=== PATIENT | female | born 1965 | race Caucasian/White ===

== ENCOUNTER 2016-09-04 10:12 | Outpatient (CLI) | payer OTHER | END 2016-09-04 10:13 | disposition home or self-care (01) | DX: Z13.820 Encounter for screening for osteoporosis (principal); M85.88 Other specified disorders of bone density and structure, other site; Z78.0 Asymptomatic menopausal state ==

== ENCOUNTER 2019-11-15 16:30 | Outpatient (CLI) | payer OTHER | END 2019-11-15 23:59 | disposition home or self-care (01) | LOC: COV 16:30 | PROVIDERS: ATTEND Family Medicine | DX: R53.83 Other fatigue (principal); R19.7 Diarrhea, unspecified; Z20.828 Contact with and (suspected) exposure to other viral communicable diseases | CPT/HCPCS: 81599 ==

== ENCOUNTER 2020-05-11 16:12 | Outpatient (CLI) | payer OTHER | END 2020-05-11 16:13 | disposition home or self-care (01) | LOC: COV 16:12 | PROVIDERS: ATTEND Family Medicine | DX: Z20.828 Contact with and (suspected) exposure to other viral communicable diseases (principal) ==

== ENCOUNTER 2020-05-14 06:39 | Outpatient (CLI) | payer OTHER ==
--- NOTE | 2020-05-14 12:35 | MRI Report ---
PROCEDURE: Knee RT W/O INDICATIONS: RT KNEE PAIN TECHNIQUE: Noncontrast sagittal PD fast spin echo and T2 fast spin echo with fat saturation, sagittal 3-D gradie nt sequence with fat saturation; coronal T1 spin echo and PD fast spin echo with fat saturation, and axial PD fast spin echo with fat saturation through the knee. COMPARISON: Concurrent x-ray of the right knee. FINDINGS: Image quality: Diagnostic. Menisci: There is mild degenerative signal along the free edge in the body of the lateral meniscus jang ggestive of mild degenerative tearing. The medial meniscus appears intact. The meniscal root ligament s also appear intact. Cruciate ligaments: The anterior and posterior cruciate ligaments appear intact. Medial structures: The medial collateral ligament appears intact. The semimembranosus tendon insert ions appear intact. Visualized portions of the pes anserinus tendons appear normal. No abnormal bur mikael fluid. Lateral structures: The fibular collateral ligament and biceps femoris tendon appear intact. The po pliteal tendon and the meniscofemoral ligaments appear intact. Anterior structures: The quadriceps and patellar tendons appear intact. There is mild tendinopathy i n the proximal patella tendon. Patellar alignment is normal. No femoral trochlear dysplasia or vent ral trochlear prominence. There is mild edema within the superolateral aspect of Hoffa's fat pad. Bones and cartilage: No bone marrow contusions or fractures. There is minimal osteophytosis. Mild t o moderate cartilage thinning is demonstrated within the patellofemoral compartment with chondral fis suring. There is associated subchondral edema along the median ridge of the patella. Mild cartilage t hinning is also demonstrated in the medial and lateral compartments with superficial chondral fraying . Joint space: There is a minimal joint effusion. There is a small Spears?s cyst. Normal appearing syn ovial plicae are incidentally noted. IMPRESSION: 1. 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 2. Degenerative signal along the free edge of the body of the lateral meniscus suggestive of mild deg enerative tearing. 3. Mild edema within the superolateral aspect of Hoffa's fat pad suggestive of impingement and possib le Hoffa's syndrome in the appropriate clinical context. 4. Mild tendinopathy in the proximal patella tendon. 5. Small Spears's cyst. Reviewed by: Dave Valenzuela MD on 05/14/2020 12:33 PM PST Approved by: Dave Valenzuela MD on 05/14/2020 12:33 PM PST Station ID: [id number]
--- NOTE | 2020-05-14 13:43 | XRAY Report ---
PROCEDURE: Knee 3 View RT INDICATIONS: RIGHT KNEE PAIN TECHNIQUE: 3 views of the right knee(s) were acquired. COMPARISON: None. FINDINGS: Bones: No fractures or dislocations. No suspicious bony lesions. Soft tissues: No joint effusion. No suspicious soft tissue calcifications. IMPRESSION: No trauma found, no joint effusion or intra-articular loose body. Reviewed by: Shiv Amato MD on 05/14/2020 1:41 PM PST Approved by: Shiv Amato MD on 05/14/2020 1:41 PM [facility] Station ID: [id number]
== END 2020-05-14 06:40 | disposition home or self-care (01) ==
LOC: DI 06:39
PROVIDERS: ATTEND Nurse Practitioner Family
DX: M22.41 Chondromalacia patellae, right knee (principal); R93.6 Abnormal findings on diagnostic imaging of limbs; R60.0 Localized edema; M67.961 Unspecified disorder of synovium and tendon, right lower leg; M71.21 Synovial cyst of popliteal space [Baker], right knee

== ENCOUNTER 2020-07-02 16:01 | Outpatient (CLI) | payer OTHER ==
[2020-07-02] MEDS ORDERED: IOVERSOL 320 100 ML VIAL IVP ONE ×2 (16:15→17:20)
[2020-07-02] MEDS ORDERED: IOVERSOL 320 50 ML VIAL ONE (16:15)
[2020-07-02] MEDS ORDERED: IOVERSOL 320 50 ML VIAL PO ONE (17:20)
--- NOTE | 2020-07-02 17:43 | CT Report ---
PROCEDURE: Abdomen/Pelvis W INDICATIONS: INTRA-ABD/PELVIC SWELLING, MASS AND LUMP CONTRAST: IV CONTRAST: Optiray 320 ml: 100 PO CONTRAST: Optiray 320 ml50 TECHNIQUE: After the administration of contrast, 5 mm thick sections acquired from the diaphragms to the sym physis. 5 mm thick coronal and sagittal reformats were acquired. For radiation dose reduction, the following was used: automated exposure control, adjustment of mA and/or kV according to patient size . COMPARISON: None. FINDINGS: Image quality: Excellent. ABDOMEN: Lung bases: Lung bases are clear. Heart size is normal. Solid organs: Liver and spleen are normal in size and enhancement. Gallbladder is contracted Bilia ry system is non dilated. Pancreas enhances normally. No adrenal nodules. Kidneys demonstrate norm al size and enhancement, without hydronephrosis. Peritoneum and bowel: Bowel loops demonstrate normal wall thickness and caliber. No free fluid or a ir. There is generalized colonic obstipation Nodes and vessels: No retroperitoneal or mesenteric adenopathy by size criteria. Aorta and inferior vena cava are normal in size. Miscellaneous: No ventral hernias. PELVIS: Genitourinary: Bladder wall thickness is normal. Miscellaneous: No inguinal hernias or adenopathy. Several small bowel loops within the lower pelvis are mildly prominent in caliber, measuring up to 2.7 cm in diameter, and associated with colonic obs tipation greater on the right than the left. Bones: No suspicious bony lesions. No vertebral body compression fractures. IMPRESSION: A definite pattern of intestinal obstruction or perforation is not found but there is ge neralized colonic obstipation greater on the right than the left. Several small bowel loops are mildl y prominent in fluid content within the pelvis, but no free fluid is seen within the cul-de-sac. Note is made of an ovoid low-density structure, potentially fluid within the right inguinal canal or a low-density lymph node in that area, measuring up to 2.3 x 1.5 cm. Please correlate for palpable en larged lymph node in that area. Reviewed by: Shiv Amato MD on 07/02/2020 5:41 PM PST Approved by: Shiv Amato MD on 07/02/2020 5:41 PM PST Station ID: [id number]
== END 2020-07-02 16:02 | disposition home or self-care (01) ==
LOC: DI 16:01
PROVIDERS: ATTEND Nurse Practitioner Family
DX: R19.00 Intra-abdominal and pelvic swelling, mass and lump, unspecified site (principal); K59.00 Constipation, unspecified
CPT/HCPCS: 74177; Q9967

== ENCOUNTER 2020-09-03 16:33 | Outpatient (CLI) | payer OTHER | END 2020-09-03 16:34 | disposition home or self-care (01) | LOC: COV 16:33 | PROVIDERS: ATTEND Surgery | DX: Z01.812 Encounter for preprocedural laboratory examination (principal); K41.30 Unilateral femoral hernia, with obstruction, without gangrene, not specified as recurrent; Z20.822 Contact with and (suspected) exposure to COVID-19 ==

== ENCOUNTER 2020-09-07 07:29 | Day surgery (SDC) | payer OTHER ==
[~2020-09-07 07:29] MED LIST: BUPIVACAINE 0.5% PF 30 ML VIAL ONE; LIDOCAINE 2%-EPI 1:100000 20 ML MDV ONE; ceFAZolin 1 GM VIAL ONE; ceFAZolin 2 GM/50 ML 2 GM/50 ML BAG IV ONE
[2020-09-07] MEDS ORDERED: ceFAZolin 1 GM VIAL IR ONE ×2 (07:31→09:35)
[2020-09-07] MEDS ORDERED: BUPIVACAINE 0.5% PF 30 ML VIAL INFIL ONE ×2 (07:32)
[2020-09-07] MEDS ORDERED: LIDOCAINE 2%-EPI 1:100000 20 ML MDV SUBQ ONE ×2 (07:32)
[2020-09-07] MEDS ORDERED: LACTATED RINGERS 1,000 ML IV ONE (07:42)
[2020-09-07] MEDS ORDERED: PROPOFOL 200 MG/20 ML VIAL IVP ONE (08:03)
[2020-09-07] MEDS ORDERED: fentaNYL 100 MCG/2 ML VIAL ONE (08:03)
[2020-09-07] MEDS ORDERED: DEXAMETHASONE 4 MG/ML VIAL ONE (08:03)
[2020-09-07] MEDS ORDERED: MIDAZOLAM 2 MG/2 ML VIAL ONE (08:03)
[2020-09-07] MEDS ORDERED: ONDANSETRON 4 MG/2 ML VIAL ONE (08:03)
[2020-09-07] MEDS ORDERED: KETOROLAC 30 MG/ML VIAL ONE (08:03)
[2020-09-07] MEDS ORDERED: ePHEDrine 50 MG/ML VIAL IVP PRN (08:19)
[2020-09-07] MEDS ORDERED: fentaNYL 100 MCG/2 ML VIAL IVP PRN (08:19)
[2020-09-07] MEDS ORDERED: METOCLOPRAMIDE 10 MG/2 ML VIAL IVP PRN (08:19)
[2020-09-07] MEDS ORDERED: HYDROmorphone 0.5 MG/0.5 ML SYRINGE IVP PRN (08:19)
[2020-09-07] MEDS ORDERED: MORPHINE 2 MG/ML CARPUJECT IVP PRN (08:19)
[2020-09-07] MEDS ORDERED: NALOXONE 0.4 MG/ML VIAL IVP PRN (08:19)
[2020-09-07] MEDS ORDERED: ATROPINE ABBOJECT 1 MG/10 ML SYRINGE IVP PRN (08:19)
[2020-09-07] MEDS ORDERED: ONDANSETRON 4 MG/2 ML VIAL IVP PRN ×2 (08:19→09:55)
--- NOTE | 2020-09-07 08:19 | ANESTHESIA ---
Pre-Anesthesia VS, & Labs - Diagnosis right femoral hernia - Procedure open right femoral hernia repair Vital Signs: Temp Pulse Resp BP Pulse Ox 36 C L 52 L 12 104/63 95 09/07/20 07:42 09/07/20 07:42 09/07/20 07:42 09/07/20 07:42 09/07/20 07:42 Height: 5 ft 5 in Weight (kg): 66.3 kg Body Mass Index: 24.3 BMI Classification: Healthy weight - NPO >8 hours - Is Patient ?: No - Lab Results Lab results reviewed: Yes Home Medications and Allergies Home Medications: Ambulatory Orders Citalopram [CeleXA] 30 mg PO DAILY 08/27/20 Estradiol [Vagifem] 10 mcg VG ONCE 08/27/20 hydrOXYzine HCL [Hydroxyzine HCl] 10 mg PO DAILY 09/07/20 Citalopram [CeleXA] 30 mg PO DAILY 08/27/20 Estradiol [Vagifem] 10 mcg VG ONCE 08/27/20 hydrOXYzine HCL [Hydroxyzine HCl] 10 mg PO DAILY 09/07/20 Allergies/Adverse Reactions: Allergies Allergy/AdvReac Type Severity Reaction Status Date / Time formaldehyde Allergy Rash Verified 08/27/20 13:46 Anes History & Medical History - Anesthetic History Anesthesia Complications: reports: No previous complications Family history of Anesthesia Complications: Denies Family history of Malignant Hyperthermia: Denies - Medical History Cardiovascular: reports: High cholesterol Pulmonary: reports: None Gastrointestinal: reports: None Urinary: reports: None Musculoskeletal: reports: Osteoarthritis Endocrine/Autoimmune: reports: None Skin: reports: Eczema - Surgical History General: reports: Colonoscopy Orthopedic: reports: Other Exam General: Alert, Oriented x3, Cooperative, No acute distress Dental: WNL Mouth Openin Fingerbreadth Neck Mobility: Normal Mallampati classification: I Respiratory: Lungs clear, Normal breath sounds, No respiratory distress, No accessory muscle use Cardiovascular: Regular rate, Normal S1, Normal S2, No murmurs Plan Anesthesia Type: General, MAC, Total IV Consent for Procedure(s) Verified and Reviewed: Yes Code Status: Attempt Resuscitation ASA classification: 1-Healthy patient Is this case an emergency?: No
[2020-09-07] MEDS ORDERED: PROPOFOL 500 MG/50 ML 500 MG/50 ML VIAL ONE (08:26)
[2020-09-07] MEDS ORDERED: LACTATED RINGERS 1,000 ML IV SCH (09:00)
[2020-09-07] MEDS ORDERED: ePHEDrine 50 MG/ML VIAL IVP ONE (09:43)
[2020-09-07] MEDS ORDERED: LACTATED RINGERS 200 ML IV ONE (09:52)
[2020-09-07] MEDS ORDERED: ACETAMINOPHEN 325 MG TABLET PO PRN (09:55)
[2020-09-07] MEDS ORDERED: oxyCODONE 5 MG TABLET PO PRN (09:55)
[2020-09-07] MEDS ORDERED: IBUPROFEN 600 MG TABLET PO PRN (09:55)
--- NOTE | 2020-09-07 09:55 | OPERATIVE REPORT ---
Operative Report - General Procedure Date: 09/07/20 Planned Procedure: Right femoral hernia repair Pre-Op Diagnosis: Symptomatic right femoral heria Procedure Performed: Right femoral hernia repair Post Op Diagnosis: Symptomatic right femoral hernia - Procedure Note Primary Surgeon: Naty Anesthesia Provider: TOM Ramsay Anesthesia Technique: General LMA, Local Pathology: None Estimated Blood Loss (mL): 5 Findings: Right femoral hernia containing perperitoneal fat and a knuckle of peritoneum and omentum Complications: None apparent - Other Other Information/Narrative: After obtaining informed consent, the patient is brought to the operating room and placed in the supine position on the operating table. Following successful induction of general endotracheal anesthesia, appropriate padding of all bony prominences, and placement of appropriate monitors, the abdomen was prepped and draped in the standard surgical fashion. A timeout was held per scope protocol. All elements of the surgical safety checklist were followed before, during, and after the procedure. We began the procedure by infiltrating a mixture of local anesthetics medial to the anterior superior iliac spine on the right. This was done to create an ileal inguinal nerve block. We then selected a site for an incision in the right lower quadrant just superior and lateral to the right pubic tubercle. This area was anesthetized with additional local anesthetic and an incision was created here.The incision was carried down through the skin and subcutaneous tissue to reveal the fascia of the external oblique aponeurosis. Retractor was placed and the aponeurosis was opened in direction of its fibers. The hernia sac was quite large and was protruding much more inferiorly than would be expected in an inguinal hernia. Further investigation revealed an incarcerated femoral hernia. The defect contained preperitoneal fat and a knuckle of peritoneum containing omentum. Careful lysis of adhesions was performed sharply to free the hernia sac from the surrounding tissue and allow it to be returned to the abdomen without injury. We were careful to preserve the integrity of the peritoneum. We elected to repair the hernia with 4.[address] hernia patch. This was dipped in Ancef containing solution and then deployed into the defect. The surgeon's index finger varified that the mesh was flat and in appropriate position. The tails were trimmed and sewn to the inguinal ligament cephalad and to the lacaunar ligament in the caudal direction. .Subcutaneous tissue and areolar tissue was then closed over the mesh still visible in the left groin. The wound was checked for hemostasis and irrigated with warm saline solution containing Ancef. It was aspirated free of all fluid and particulate matter. Adelaide's fascia was closed with Vicryl suture and Monocryl stitches were placed in the skin. All sponge, needle, and instrument counts were correct at the conclusion of the case. The patient was allowed awaken from anesthesia without difficulty and taken to the postanesthesia care unit in good condition.
[2020-09-07 10:41] VITALS: BP 122/67
--- NOTE | 2020-09-07 12:01 | ANESTHESIA POST OP EVALUATION ---
Anesthesia Post Eval - Post Anesthesia Eval Vitals: Last Vital Signs Temp 36.7 C 09/07/20 10:40 Pulse 74 09/07/20 10:40 Resp 16 09/07/20 10:40 BP 122/67 09/07/20 10:40 Pulse Ox 97 09/07/20 10:40 CV Function Including HR & BP: positive: Stable Pain Control: positive: Satisfactory Nausea & Vomiting: positive: Negative Mental Status: positive: Baseline Respiratory Status: Airway Patent Hydration Status: Satisfactory Anesthesia Complications: positive: None
== END 2020-09-07 07:30 | disposition home or self-care (01) ==
LOC: SDS 07:29
PROVIDERS: ATTEND Surgery
DX: K41.30 Unilateral femoral hernia, with obstruction, without gangrene, not specified as recurrent (principal)
CPT/HCPCS: 49553; C1781; J0690; J7120

== ENCOUNTER 2021-04-15 11:44 | Emergency (ER) | payer OTHER ==
[2021-04-15] MEDS ORDERED: PENICILLIN VK 250 MG TABLET PO STA (13:18)
[2021-04-15] MEDS ORDERED: TETANUS/DIPHTHERIA/PERTUSSIS 0.5 ML SYRINGE IM ONE (13:18)
--- NOTE | 2021-04-15 13:19 | ED Physician Documentation ---
PD HPI WOUND RECHECK - Stated complaint Stated Complaint: RAT BITE - Chief complaint Chief Complaint: Wound - Histroy obtained from History obtained from: Patient - Additional information Additional information: After 5 this morning her cat brought in alive rat who appeared healthy. As she was throwing it out of the house it bit her on the right index finger. Tetanus is unknown. Review of Systems Constitutional: reports: Reviewed and negative Eyes: reports: Reviewed and negative Ears: reports: Reviewed and negative PD PAST MEDICAL HISTORY - Past Medical History Cardiovascular: High cholesterol Respiratory: None Endocrine/Autoimmune: None GI: None : None HEENT: Chronic vision loss Psych: Depression Musculoskeletal: Osteoarthritis Derm: Eczema - Past Surgical History General: Colonoscopy Ortho: Other - Present Medications Home Medications: Ambulatory Orders Medication Instructions Recorded Confirmed Citalopram [CeleXA] 30 mg PO DAILY 08/27/20 09/07/20 Estradiol [Vagifem] 10 mcg VG ONCE 08/27/20 09/07/20 Ondansetron Odt [Zofran Odt] 4 mg TL Q6H PRN #10 tablet 09/07/20 hydrOXYzine HCL [Hydroxyzine HCl] 10 mg PO DAILY 09/07/20 09/07/20 oxyCODONE [Roxicodone] 5 mg PO Q6H PRN #14 tablet 09/07/20 Penicillin V Potassium 500 mg PO Q6HR #20 tablet 04/15/21 Rabies Vaccine [Rabavert] 2.5 unit IM DAILY #3 04/15/21 - Allergies Allergies/Adverse Reactions: Allergies Allergy/AdvReac Type Severity Reaction Status Date / Time formaldehyde Allergy Rash Verified 04/15/21 12:09 PD ED PE NORMAL - Vitals Vital signs reviewed: Yes - General General: Alert and oriented X 3, No acute distress - Extremities Extremities: Other (2 small puncture wounds near the DIP of the right index finger without tenderness or limited range of motion.) - Neuro Neuro: Alert and oriented X 3, Normal speech Results - Vitals Vitals: Vital Signs - 24 hr 04/15/21 12:05 Temperature 37.2 C Heart Rate 63 Respiratory 16 Rate Blood Pressure 114/64 O2 Saturation 97 Oxygen O2 Source Room air PD MEDICAL DECISION MAKING - ED course ED course: 56-year-old woman with a rat bite to the finger. She is started on penicillin and tetanus is updated. We had a long discussion about rabies and I also consulted the [facility] service officer touring production manager. She stated that it is felt that in [place] it is low risk to get rabies from a rat but not no risk and recommended neither for nor against rabies vaccination. This was discussed at length with the patient. After much deliberation and she also called her insurance company, she would like to go ahead with rabies immunoglobulin and vaccination. Departure - Departure Disposition: 01 Home, Self Care Clinical Impression: Animal bite with open wound Rat bite Qualifiers: Encounter type: initial encounter Qualified Code(s): W53.11XA - Bitten by rat, initial encounter Condition: Good Instructions: ED Bite Animal General Follow-Up: Es Scott ARNP [Physician No Access] - Prescriptions: Penicillin V Potassium 500 mg PO Q6HR #20 tablet Rabies Vaccine [Rabavert] 2.5 unit IM DAILY #3 Comments: Come back for any signs of infection which would include: Redness, swelling, drainage, increased pain, or fevers. You can wash it soap and water. Keep it covered and moist with bacitracin ointment which is available over the counter; avoid neosporin. Subsequent rabies vaccines need to be given on the third day, , and then the seventh day, next Thursday, and the day, the Thursday after. I am writing a paper order for you to be able to go to [facility] for this, if they do not carry it, you can contact your primary care physician to see if they will write orders for our medical healthcare technician clinic, if that is unsuccessful you can return to the emergency department on those dates for vaccination. Forms: Rabies Vaccine Series (MAC)
[2021-04-15] MEDS ORDERED: RABIES IMMUNE GLOBULIN 300 UNITS/2 ML IM STA (14:17)
[2021-04-15] MEDS ORDERED: RABIES VACCINE 2.5 UNIT SYRINGE IM ONE (14:17)
[2021-04-15 15:24] VITALS: BP 122/74
== END 2021-04-15 15:25 | disposition home or self-care (01) ==
LOC: ED 11:44
DX: S61.250A Open bite of right index finger without damage to nail, initial encounter (principal); W53.11XA Bitten by rat, initial encounter; Y92.019 Unspecified place in single-family (private) house as the place of occurrence of the external cause; H54.7 Unspecified visual loss; Z79.899 Other long term (current) drug therapy
CPT/HCPCS: 90376; 90471; 90675; 90715; 96372; 99283; A9270

== ENCOUNTER 2021-11-12 17:29 | Outpatient (CLI) | payer OTHER ==
--- NOTE | 2021-11-13 12:47 | XRAY Report ---
PROCEDURE: Ankle 2 View RT INDICATIONS: Inversion injury TECHNIQUE: 2 views of the ankle were acquired. COMPARISON: none FINDINGS: Bones: No fractures or dislocations. ORIF of the distal fibula. Hardware is intact. There is good anatomic alignment. Ankle mortise is normally aligned. No suspicious bony lesions. Soft tissues: Mild lateral malleolar edema. Achilles tendon appears normal. IMPRESSION: No visualized acute fracture or dislocation. However, occult injury cannot be excluded. Recommend short interval imaging follow-up in 7-10 days as clinically indicated for additional evalua tion. Reviewed by: Alice Ruggiero MD on 11/13/2021 12:46 PM PDT Approved by: Alice Ruggiero MD on 11/13/2021 12:46 PM PDT Station ID: [id number]
== END 2021-11-12 17:30 | disposition home or self-care (01) ==
LOC: DI.S 17:29
PROVIDERS: ATTEND Physician Assistant
DX: M25.571 Pain in right ankle and joints of right foot (principal)